=== PATIENT | male | born 1990 | race African-American/Black ===

== ENCOUNTER 2016-05-21 20:05 | Emergency (ER) | payer BC, OTHER ==
[2016-05-21 20:09] VITALS: TEMP 37; Ht 170.2 cm
[2016-05-21] MEDS ORDERED: METHYLPREDNISOLONE 125 MG VIAL IV STA (20:20)
[2016-05-21] MEDS ORDERED: EpINEphrine INJ 1MG/ML AMP 1 MG/ML AMP IM STA (20:20)
[2016-05-21] MEDS ORDERED: DiphenhydrAMINE HCL 50 MG/ML VIAL IV STA (20:20)
[2016-05-21] MEDS ORDERED: ALBUT/IPRATROP 3MG/0.5MG NEB 3 ML VIAL INH STA ×2 (20:20→21:54)
[2016-05-21] MEDS ORDERED: FAMOTIDINE IV INJ 20 MG in DEXTROSE 5% 100ML 100 ML IV ONE (20:30)
[2016-05-21] MEDS ORDERED: EPP3/2 IM ×2 (21:13→22:39)
[2016-05-21] MEDS ORDERED: IBUP-103 PO (21:13)
--- NOTE | 2016-05-21 21:25 | DIAGNOSTIC IMAGING REPORT ---
CHEST ONE VIEW PORTABLE CLINICAL HISTORY: Allergic reaction. COMPARISON STUDY: No previous studies for comparison. FINDINGS: Lung volumes are normal. Lungs are clear. There is no pneumothorax or pleural effusion. Cardiac size is normal. Mediastinal contours are normal. There is no evidence of pulmonary edema. IMPRESSION: No acute cardiopulmonary findings. Electronically signed by: Eloy Alvares M.D. 05/21/2016 9:24 PM Dictated Date/Time: 05/21/2016 9:24 PM
[2016-05-21] MEDS ORDERED: PRED20TA PO (22:38)
--- NOTE | 2016-05-21 22:40 | EMERGENCY ROOM VISIT NOTE ---
History Report prepared by Scribe: Marilyn Espinoza Under the Supervision of: Dr. Jeb Byrne D.O. First contact with patient: 20:16 Chief Complaint: ALLERGIC REACTION Stated Complaint: ALLERGIC REACTION History of Present Illness The patient is a 25 year old male who presents to the Emergency Room with complaints of a worsening allergic reaction that started prior to arrival. He reports he was at a cookout this evening when he started to experience breathing issues. He has a known peanut allergy and reports his symptoms are usually throat swelling and difficulty breathing. He states he feels like his throat is swollen here in the ED. His Oxygen was 79 on room air on arrival. Source of History: patient Onset: Earlier this evening Position: other (global) Timing: worsening Review of Systems See HPI for pertinent positives & negatives. A total of 10 systems reviewed and were otherwise negative. Past Medical & Surgical Medical Problems: (1) Peanut allergy Social History Smoking Status: Never Smoker Smokeless Tobacco Use: No Alcohol Use: occasionally Drug Use: none Marital Status: single Housing Status: lives with roommate Occupation Status: [employer] Current/Historical Medications Scheduled Epinephrine (Epipen), 0.3 MG IM UD Prednisone (Prednisone), 3 TAB PO DAILY Scheduled PRN Epinephrine (Epipen), 0.3 MG IM UD PRN for ALLERGIC REACTION Ibuprofen Tab (Advil), 200 MG PO UD PRN for Pain or Fever Allergies Coded Allergies: Peanut (Verified Allergy, Severe, ANAPHYLAXIS, 05/21/16) Physical Exam Vital Signs Date Time Temp Pulse Resp B/P Pulse Ox O2 Delivery O2 Flow Rate FiO2 05/21/16 22:00 92 20 110/77 98 Nebulizer 05/21/16 21:28 94 Room Air 05/21/16 20:17 94 05/21/16 20:09 37.0 77 16 74/39 77 Room Air Physical Exam CONSTITUTIONAL/VITAL SIGNS: Reviewed / noted above. GENERAL: Non-toxic in appearance. INTEGUMENTARY: Warm, dry, and [place]. HEAD: Normocephalic. EYES: without scleral icterus or trauma. ENT/OROPHARYNX: Some mucosal erythema without obvious or significant edema. LYMPHADENOPATHY/NECK: Is supple without lymphadenopathy or meningismus. RESPIRATORY: Diminished breath sounds bilaterally. No upper airway stridor. CARDIOVASCULAR: Regular rate and rhythm. GI/ABDOMEN: Soft and nontender. No organomegaly or pulsatile mass. No rebound or guarding. Normal bowel sounds. EXTREMITIES: Warm and well perfused. BACK: No CVA tenderness. NEUROLOGICAL: Intact without focal deficits. PSYCHIATRIC: normal affect. MUSCULOSKELETAL: Normally developed with good muscle tone. Medical Decision & Procedures Medications Administered Medications (Trade) Dose Ordered Sig/Cris Route Start Time Stop Time Status Last Admin Dose Admin Methylprednisolone Sodium Succinate (Solu-Medrol IV) 125 mg NOW STAT IV 05/21/16 20:20 05/21/16 20:21 DC 05/21/16 20:31 125 MG Diphenhydramine HCl (Benadryl Inj) 25 mg NOW STAT IV 05/21/16 20:20 05/21/16 20:21 DC 05/21/16 20:31 25 MG Albuterol/ Ipratropium (Duoneb) 3 ml NOW STAT INH 05/21/16 20:20 05/21/16 20:21 DC 05/21/16 20:31 3 ML Epinephrine HCl 0.3 mg 0.3 mg NOW STAT IM 05/21/16 20:20 05/21/16 20:21 DC 05/21/16 20:29 0.3 MG Famotidine/ Dextrose (Pepcid IV Inj/ D5 100ml) 102 ml @ 200 mls/hr ONE ONCE IV 05/21/16 20:30 05/21/16 21:00 DC 05/21/16 20:30 200 MLS/HR Albuterol/ Ipratropium (Duoneb) 3 ml NOW STAT INH 05/21/16 21:54 05/21/16 21:55 DC 05/21/16 22:06 3 ML ED Course 2017: Previous medical records were reviewed. The patient was evaluated in room A9. A complete history and physical examination was performed. 2019: Epinephrine HCl 0.3 mg IM, DuoNeb 3 ml INH, Benadryl 25 mg IV, Solu- Medrol 125 mg IV. 2029: Famotidine 20 mg/Dextrose 102 ml @ 200 mls/hr IV. 2153: DuoNeb 3 ml INH. 0: I reevaluated the patient. He is feeling much better. I discussed his results and discharge instructions and he verbalized complete understanding and agreement. 5: Albuterol 2 puffs INH. Medical Decision Etiologies such as allergic reaction, anaphylaxis, urticaria, Plunkett-Angelo syndrome, toxic epidermal necrolysis, erythema multiforme, cellulitis, as well as others were entertained. This is a 25-year-old male who presents to the ED with a chief complaint of allergic reaction. The patient states he has an allergic reaction history to peanuts. The patient states that he was having some chickens and did not know if there was peanut involved but he developed symptoms suggestive of an allergic reaction. He developed wheezing and tightness in his chest as well as a sensation of throat swelling. The patient took his EpiPen. He came to the emergency department for evaluation. The patient was noted to be hypoxic on his initial evaluation here. This improved with oxygen. Further details physical exam are noted above. There is no obvious airway stridor or mucosal edema. He did have somewhat diminished breath sounds with some wheezing. The patient was treated here with subcutaneous epinephrine as well as IV Benadryl, IV Solu-Medrol and IV Pepcid. He was given DuoNeb treatment 2. The patient was able to maintain his oxygen saturations off of oxygen and his symptoms did seem to be improved. The patient was feeling better and felt like he was able to go home. He was told to return for any worsening or new/recurrent symptoms. The patient was given a prescription for prednisone and told to take Benadryl for the next several days. He was given an albuterol MDI upon discharge. Impression Primary Impression: Allergic reaction Scribe Attestation The scribe's documentation has been prepared under my direction and personally reviewed by me in its entirety. I confirm that the note above accurately reflects all work, treatment, procedures, and medical decision making performed by me. Departure Information Dispostion Home / Self-Care Prescriptions Epinephrine (EPIPEN) 0.3 Mg/0.3 Ml Inj 0.3 MG IM UD, #1 BOX Prov: Jeb Byrne D.O. 05/21/16 Prednisone (Prednisone) 20 Mg Tab 3 TAB PO DAILY for 4 Days, #12 TAB Prov: Jeb Byrne D.O. 05/21/16 Patient Instructions ED Allergic React Food, [facility] Additional Instructions Prednisone as prescribed. Benadryl: Take 2 tablets every 6 hours for the next several days. Use your EpiPen if necessary. Albuterol inhaler: 2 puffs every 2-4 hours as needed for breathing. Return for any worsening or recurrences.
[2016-05-21] MEDS ORDERED: ALBUTEROL HFA 8 GM INHALER INH ONE (22:45)
[2016-05-21 22:48] VITALS: BP 130/69; PULSE 96; O2SAT 97
== END 2016-05-21 23:01 | disposition home or self-care (01) ==
LOC: C.EDB 20:07 → C.EDA 23:01
DX: T78.40XA Allergy, unspecified, initial encounter (principal); X58.XXXA Exposure to other specified factors, initial encounter; Z91.010 Allergy to peanuts; Z79.52 Long term (current) use of systemic steroids